=== PATIENT | female | born 1975 | race Caucasian/White ===

== ENCOUNTER 2017-06-19 07:49 | Emergency (ER) | payer MEDICAID ==
[~2017-06-19] VITALS: Ht 174 cm; Wt 74.8 kg
[2017-06-19 07:51] VITALS: BP 110/73
[2017-06-19] MEDS ORDERED: DIAZEPAM 5 MG TABLET PO ONE (08:30)
[2017-06-19] MEDS ORDERED: KETOROLAC 30 MG/1 ML IM ONE (08:30)
[2017-06-19] MEDS ORDERED: DIAZEPAM 5 MG TABLET ONE (08:31)
[2017-06-19] MEDS ORDERED: KETOROLAC 30 MG/1 ML ONE (08:31)
== END 2017-06-19 10:35 | disposition home or self-care (01) ==
LOC: ED 09:00
DX: S16.1XXA Strain of muscle, fascia and tendon at neck level, initial encounter (principal); M48.02 Spinal stenosis, cervical region; M54.12 Radiculopathy, cervical region; X58.XXXA Exposure to other specified factors, initial encounter; Y93.89 Activity, other specified; Y99.8 Other external cause status; Y92.89 Other specified places as the place of occurrence of the external cause
CPT/HCPCS: 72125; 96372; 99284; J1885

== ENCOUNTER 2017-06-30 08:40 | Emergency (ER) | payer SELFPAY ==
[~2017-06-30] VITALS: Ht 172.7 cm; Wt 68.1 kg
[2017-06-30 08:47] VITALS: BP 107/71
[2017-06-30] MEDS ORDERED: KETOROLAC 30 MG/1 ML ONE (10:18)
[2017-06-30] MEDS ORDERED: KETOROLAC 30 MG/1 ML IM ONE (10:30)
== END 2017-06-30 10:47 | disposition home or self-care (01) ==
LOC: ED 10:30
DX: G89.29 Other chronic pain (principal); M54.2 Cervicalgia; F17.200 Nicotine dependence, unspecified, uncomplicated
CPT/HCPCS: 96372; 99283; J1885

== ENCOUNTER 2018-03-24 16:49 | Emergency (ER) | payer MEDICAID, OTHER ==
[~2018-03-24] VITALS: Ht 172.7 cm; Wt 66.7 kg
[2018-03-24 17:31] VITALS: BP 131/79
[2018-03-24] MEDS ORDERED: METHOCARBAMOL 750 MG TABLET PO ONE (18:30)
[2018-03-24] MEDS ORDERED: METHOCARBAMOL 750 MG TABLET ONE (18:51)
[2018-03-24 18:52] LABS: ALBUMIN 3.9 g/dL (3.4-5.0); ANION GAP 6 mmol/L (5-15); CALCIUM 8.6 mg/dL (8.5-10.1); CHLORIDE 109 mmol/L (98-107); CREATININE 0.61 mg/dL (0.55-1.02)
== END 2018-03-24 19:16 | disposition home or self-care (01) ==
LOC: ED 18:35
DX: S16.1XXA Strain of muscle, fascia and tendon at neck level, initial encounter (principal); M50.30 Other cervical disc degeneration, unspecified cervical region; I34.1 Nonrheumatic mitral (valve) prolapse; F17.200 Nicotine dependence, unspecified, uncomplicated; M19.90 Unspecified osteoarthritis, unspecified site; Z88.0 Allergy status to penicillin; Z88.4 Allergy status to anesthetic agent; Z88.6 Allergy status to analgesic agent; Z88.1 Allergy status to other antibiotic agents; X58.XXXA Exposure to other specified factors, initial encounter; Y93.89 Activity, other specified; Y92.89 Other specified places as the place of occurrence of the external cause; Y99.8 Other external cause status
CPT/HCPCS: 36415; 80048; 82040; 99284